=== PATIENT | male | born 1965 | race Caucasian/White ===

== ENCOUNTER 2018-03-16 01:15 | Inpatient (IN) ==
[2018-03-16 01:31] VITALS: BMI 25.8
[2018-03-16] MEDS ORDERED: MORPHINE SULFATE INJ 4 MG IVP ONE (02:08)
[2018-03-16] MEDS ORDERED: ZOFRAN INJ 4 MG VIAL IVP ONE (02:08)
[2018-03-16] MEDS ORDERED: ZOFRAN INJ 4 MG VIAL ONE ×2 (02:10→13:33)
[2018-03-16] MEDS ORDERED: MORPHINE SULFATE INJ 4 MG ONE ×2 (02:11→05:03)
[2018-03-16 02:16] LABS: BASOPHILS % (AUTO) 0.2 % (0.2-1.0); EOSINOPHILS % (AUTO) 0.1 % (0.9-2.9); HEMATOCRIT 46.8 % (42.0-54.0); HEMOGLOBIN 16.1 g/dL (13.5-18.0); LYMPHOCYTES % (AUTO) 4.5 % (21.0-51.0); MEAN CORPUSCULAR HEMOGLOBIN 30.5 pg (27.0-34.0); MEAN CORPUSCULAR HGB CONC 34.3 g/dL (33.0-35.0); MEAN CORPUSCULAR VOLUME 88.8 fL (80.0-100.0); MEAN PLATELET VOLUME 7.9 fL (7.4-11.0); MONOCYTES # (AUTO) 1.2 x10^3/uL (0.3-0.8); MONOCYTES % (AUTO) 5.5 % (0.0-13.0); NEUTROPHILS # (AUTO) 20.1 x10^3/uL (2.2-4.8); NEUTROPHILS % (AUTO) 89.7 % (42.0-75.0); PLATELET COUNT 254 X10^3/uL (150.0-450.0); RED BLOOD COUNT 5.28 X10^6/uL (4.7-6.0); RED CELL DISTRIBUTION WIDTH 13.6 % (11.6-16.5); WHITE BLOOD COUNT 22.4 X10^3/uL (3.6-10.0)
[2018-03-16 02:28] LABS: BILIRUBIN,URINE NEGATIVE (NEGATIVE); BLOOD/HEMOGLOBIN,URINE 1+ (NEGATIVE); GLUCOSE, URINE NEGATIVE (NEGATIVE); KETONES,URINE NEGATIVE (NEGATIVE); LEUKOCYTE ESTERASE ,URINE NEGATIVE (NEGATIVE); NITRITES,URINE NEGATIVE (NEGATIVE); PROTEIN,URINE 1+ (NEGATIVE); UROBILINOGEN,URINE NORMAL (NORMAL)
[2018-03-16 02:29] LABS: APPEARANCE,URINE CLEAR (CLEAR); COLOR,URINE DARK YELLOW (YELLOW)
[2018-03-16 02:32] LABS: ALANINE AMINOTRANSFERASE 34 Units/L (12-78); ALBUMIN 3.7 g/dL (3.4-5.0); ALKALINE PHOSPHATASE 62 Units/L (46-116); AMYLASE 35 Units/L (25-115); ASPARTATE AMINO TRANSFERASE 11 Units/L (15-37); BLOOD UREA NITROGEN 19 mg/dL (7-18); CALCIUM 9.3 mg/dL (8.5-10.1); CARBON DIOXIDE 27.3 mmol/L (21-32); CHLORIDE 98 mmol/L (98-107); COR NA(FOR HYPERGLY) 136 mmol/L (136-145); CREATININE 1.11 mg/dL (0.70-1.30); LIPASE 82 Units/L (73-393); SODIUM 134 mmol/L (136-145); TOTAL PROTEIN 7.1 g/dL (6.4-8.2); eGFR NON BLACK RACES > 60 (>60)
--- NOTE | 2018-03-16 02:32 | DR.ABDMALE ---
HPI Time seen Time Seen by Provider: 03/16/18 01:38 PCP Primary Care Physician: ASH MARQUEZ HPI comment HPI Comment: HISTORY BELOW. Complaint Chief Complaint Doctors Comments: LEFT INGUINAL HERNIA, NOT REDUCIBLE SINCE NOON YESTERDAY. NO FEVER. PAIN WORSE TONIGHT. HAVE HAD HERNIA IN THIS AREA FOR LONG. PATIENT ALSO HAVING LOWER ABDOMINAL PAIN ON LT AND RT ABDOMEN. DENIES DYAURIA. Chief Complaint:: " I BELIEVE I HAVE A RUPTURE HERNIA IT STARTED HURTING ME YESTERDAY ABOUT NOON AND NOWS ITS HURTING WORST AND I CANT SLEEP. PAIN IN MY GROIN STOMACH AND BACK AND MY GROIN SWOLLING. NEVER SEEN NO DR ABOUT HERNIA I JUST HAVE A BIG LUMP IN MY LEFT GROIN." Reviewed Nurses Notes Review: Yes Mode of arrival Mode of Arrival: Ambulatory Timing Onset of Chief Complaint: 03/15/18 Came on: Suddenly Duration Duration: Constant Duration: Hours Location Location: RLQ, LLQ and Suprapubic Severity Severity: Moderate Quality Quality: Sharp Context Onset: Suddenly and At Rest History of: None Modifying factors Worsening Factors: Exertion and Movement Improving Factors: Lying Still Associated signs and symptoms Associated Signs and Symptoms: None PMH PMH Past Medical History: Yes Past Medical History: Hypertension Past Surgical History: No Family History History of Family Medical Conditions: No Social History Type of Tobacco Use: Cigarettes Alcohol Use: None Do you use any recreational Drugs:: No Lives Where: Home infectious screening Have you traveled outside the country in the last 6 months?: No ROS Review of Systems Constitutional: No Symptoms Reported; negative Fever Eyes: No Symptoms Reported ENTM: No Symptoms Reported Respiratoy: No Symptoms Reported Cardiovascular: No Symptoms Reported Gastrointestinal/Abdominal: Abdominal Pain Genitourinary: Pain (LT INGUINAL AREA AND LOWER ABDOMEN.) Neurological: No Symptoms Reported Musculoskeletal: No Symptoms Reported Integumentary: No Symptoms Reported Hematologic/Lymphatic: No Symptoms Reported Endocrine: No Symptoms Reported Psychiatric: No Symptoms Reported All Other Systems: Reviewed and Negative PE Vital Signs Vital Signs: Temp Pulse Pulse Resp BP BP Pulse Ox 03/16/18 05:35 98.6 F 100 H 20 121/77 95 03/16/18 05:18 102.4 F H 99 H 20 117/68 92 L 03/16/18 01:25 99.2 F 88 18 106/60 97 General Limitations: No Limitations General Appearance: Alert and In No Apparent Distress Head Head Exam: Normal Inspection Eyes Eye exam: Normal Appearance ENT ENT Exam: Normal Exam Neck Neck Exam: Normal Inspection Chest Chest Inspection: Normal Inspection Respiratory Respiratory Exam: Normal Lung Sounds Bilat Respiratory Exam: Bilateral: Clear to Auscultation Cardiovascular Cardiovascular Exam: Regular Rate and Normal Rhythm Abdominal Exam Abdominal Exam: Normal Inspection, Normal Bowel Sounds, Soft, Tenderness and Hernia (LT GROIN AREA. NOT REDUCIBLE.) Abdominal Tenderness: RLQ, LLQ, Epigastrium and Severe Rectal Rectal Exam: Deferred Back Back Exam: Normal Inspection Extremeties Extremities Exam: Normal Inspection Exam: Male: Deferred Neurologic Neurological Exam: Alert and Oriented X3 Psychiatric Psychiatric Exam: Normal Affect and Normal Mood Skin Skin Exam: Warm, Dry, Intact and Normal Color MDM Differential Diagnosis Differential Diagnosis: Diverticular disease, Hernia, Pancreatitis, Urinary tract infection and Urolithiasis COURSE Treatment Treatment: SEE ORDERS. Consultation Consultation Comments: DISCUSS PATIENT WITH DR. BRADY, TO ADMIT TO ON DR. DR. POWELL ACCEPT ADMISSION. Education/Counseling Education/Counseling: Patient and Family Educated On: Diagnosis ROR Labs Reviewed Laboratory Results Reviewed?: Yes Result Diagrams: 03/16/18 02:06 03/16/18 02:06 Laboratory: WBC 22.4 X10^3/uL (3.6-10.0) H 03/16/18 02:06 RBC 5.28 X10^6/uL (4.7-6.0) 03/16/18 02:06 Hgb 16.1 g/dL (13.5-18.0) 03/16/18 02:06 Hct 46.8 % (42.0-54.0) 03/16/18 02:06 MCV 88.8 fL (80.0-100.0) 03/16/18 02:06 MCH 30.5 pg (27.0-34.0) 03/16/18 02:06 MCHC 34.3 g/dL (33.0-35.0) 03/16/18 02:06 RDW 13.6 % (11.6-16.5) 03/16/18 02:06 Plt Count 254 X10^3/uL (150.0-450.0) 03/16/18 02:06 Plt Count Comment Adequate (ADEQUATE) 03/16/18 02:06 MPV 7.9 fL (7.4-11.0) 03/16/18 02:06 Neut % (Auto) 89.7 % (42.0-75.0) H 03/16/18 02:06 Lymph % (Auto) 4.5 % (21.0-51.0) L 03/16/18 02:06 [place] % (Auto) 5.5 % (0.0-13.0) 03/16/18 02:06 Eos % (Auto) 0.1 % (0.9-2.9) L 03/16/18 02:06 Baso % (Auto) 0.2 % (0.2-1.0) 03/16/18 02:06 Neut # (Auto) 20.1 x10^3/uL (2.2-4.8) H 03/16/18 02:06 Lymph # (Auto) 1.0 X10^3/uL (1.3-2.9) L 03/16/18 02:06 [place] # (Auto) 1.2 x10^3/uL (0.3-0.8) H 03/16/18 02:06 Eos # (Auto) 0.0 x10^3/uL (0.0-0.2) 03/16/18 02:06 Baso # (Auto) 0.0 X10^3/uL (0.0-0.1) 03/16/18 02:06 Absolute Nucleated RBC 0.0 /100WBC 03/16/18 02:06 Total Counted 100 03/16/18 02:06 Neutrophils % (Manual) 81 % (39-76) H 03/16/18 02:06 Band Neutrophils % 5 % (0-10) 03/16/18 02:06 Lymphocytes % (Manual) 10 % (13-43) L 03/16/18 02:06 Monocytes % (Manual) 4 % (4-9) 03/16/18 02:06 Plt Morphology Comment Normal (NORMAL) 03/16/18 02:06 RBC Morphology Normal (NORMAL) 03/16/18 02:06 Sodium 134 mmol/L (136-145) L 03/16/18 02:06 Corrected Sodium 136 mmol/L (136-145) 03/16/18 02:06 Potassium 4.3 mmol/L (3.5-5.1) 03/16/18 02:06 Chloride 98 mmol/L (98-107) 03/16/18 02:06 Carbon Dioxide 27.3 mmol/L (21-32) 03/16/18 02:06 BUN 19 mg/dL (7-18) H 03/16/18 02:06 Creatinine 1.11 mg/dL (0.70-1.30) 03/16/18 02:06 Est GFR (MDRD) Af Amer > 60 (>60) 03/16/18 02:06 Est GFR (MDRD) Non-Af > 60 (>60) 03/16/18 02:06 Glucose 166 mg/dL (65-99) H 03/16/18 02:06 Lactic Acid 2.1 mmol/L (0.4-2.0) H 03/16/18 05:07 Calcium 9.3 mg/dL (8.5-10.1) 03/16/18 02:06 Corrected Calcium TNP 03/16/18 02:06 Total Bilirubin 0.70 mg/dL (0.2-1.0) 03/16/18 02:06 AST 11 Units/L (15-37) L 03/16/18 02:06 ALT 34 Units/L (12-78) 03/16/18 02:06 Alkaline Phosphatase 62 Units/L (46-116) 03/16/18 02:06 C-Reactive Protein 115.30 mg/L (0-3.0) H 03/16/18 05:07 Total Protein 7.1 g/dL (6.4-8.2) 03/16/18 02:06 Albumin 3.7 g/dL (3.4-5.0) 03/16/18 02:06 Globulin 3.4 g/dL (2.5-4.5) 03/16/18 02:06 Albumin/Globulin Ratio 1.1 Ratio (1.1-2.1) 03/16/18 02:06 Amylase 35 Units/L (25-115) 03/16/18 02:06 Lipase 82 Units/L (73-393) 03/16/18 02:06 Specimen Type Clean catch urine 03/16/18 02:18 Urine Color Dark yellow (YELLOW) 03/16/18 02:18 Urine Appearance Clear (CLEAR) 03/16/18 02:18 Urine pH 6.0 (5.0 - 8.0) 03/16/18 02:18 Ur Specific [place] 1.015 (1.000-1.030) 03/16/18 02:18 Urine Protein 1+ (NEGATIVE) 03/16/18 02:18 Urine Glucose (UA) Negative (NEGATIVE) 03/16/18 02:18 Urine Ketones Negative (NEGATIVE) 03/16/18 02:18 Urine Occult Blood 1+ (NEGATIVE) 03/16/18 02:18 Urine Nitrite Negative (NEGATIVE) 03/16/18 02:18 Urine Bilirubin Negative (NEGATIVE) 03/16/18 02:18 Urine Urobilinogen Normal (NORMAL) 03/16/18 02:18 Ur Leukocyte Esterase Negative (NEGATIVE) 03/16/18 02:18 Urine RBC 0-2 /HPF (NONE SEEN) 03/16/18 02:18 Urine WBC None seen /HPF (NONE SEEN) 03/16/18 02:18 Ur Squamous Epith Cells Negative /HPF (NEGATIVE) 03/16/18 02:18 Urine Bacteria Negative /HPF (NEGATIVE) 03/16/18 02:18 Urine Mucus Rare /HPF (NEGATIVE) 03/16/18 02:18 Ur Culture Indicated? No/not indicated 03/16/18 02:18 XRAY XRAY Interpreted by: Radiologist XRAY Findings: REPORT DISCUSS WITH PATIENT.
[2018-03-16 02:41] LABS: BACTERIA,URINE NEGATIVE /HPF (NEGATIVE); MUCUS,URINE RARE /HPF (NEGATIVE); RBC,URINE 0-2 /HPF (NONE SEEN); SQUAMOUS EPITHELIAL CELL,UR NEGATIVE /HPF (NEGATIVE)
[2018-03-16 02:50] LABS: BAND NEUTROPHILS % 5 % (0-10); PLATELET MORPHOLOGY COMMENT NORMAL (NORMAL)
[2018-03-16] MEDS ORDERED: NS 100 ML IV 100 ML IV ONE (03:45)
--- NOTE | 2018-03-16 04:33 | CT ---
CT abdomen and pelvis with contrast Indication: Lower abdominal pain. Hernia. Technique: Helical images through the abdomen and pelvis after IV contrast. Coronal and sagittal reformats provided. Comparison: None available Findings: Limited images through the lower chest show large left diaphragmatic hernia, containing splenic flexure and portions of the left colon, without obstruction. Granulomatous changes seen around the left hilum Review of bone windows shows no osseous lesion. Abdomen: Gallstones are noted. There is fatty liver. The spleen is beneath the diaphragm and not involved in the hernia and appears normal. The adrenal glands partially herniates on sagittal image 23. The upper pole of the kidney is involved in the hernia on sagittal image 19. Kidneys are otherwise normal. Vasculatures are normal. The stomach and small bowel show no acute abnormality. The colon shows no acute abnormality. The appendix is dilated with a stone in the tip in free air surrounding the tip of the appendix on sagittal image 33 and axial image 80. Free air is noted on axial image 78. Pelvis: The urinary bladder and rectum are normal. The prostate gland is enlarged. Fat containing inguinal hernia is noted bilaterally, larger on the left. Fat containing umbilical hernia noted Impression: 1. Perforated acute appendicitis of the tip with small free fluid and free air. 2. Diaphragmatic hernia on the left and other findings as above. Gallstones. Enlarged prostate gland. Correlate with PSA and physical exam findings. THE AVAILABILITY OF THE REPORT AND FINDINGS WERE COMMUNICATED TO Dr. Blake by Dr. Diaz on 03/16/2018 Time called 4:30 a.m. Reported By:
[2018-03-16] MEDS ORDERED: FLAGYL IV PREMIX 500 MG BAG 500 MG/100 ML BAG IV ONE (04:38)
[2018-03-16] MEDS ORDERED: ZOSYN VIAL 3.375 GRAMS 3.375 G in NS 100 ML IV + SPIKE MINIBAG* 100 ML IV ONE (04:38)
[2018-03-16] MEDS ORDERED: NS 100 ML IV + SPIKE MINIBAG* 100 ML IV ONE (04:51)
[2018-03-16] MEDS ORDERED: ZOSYN VIAL 3.375 GRAMS IV ONE (04:52)
[2018-03-16] MEDS: NS 1000 ML 1,000 ML IV SCH ×3 (05:02→21:05)
[2018-03-16] MEDS ORDERED: MORPHINE SULFATE INJ 4 MG IVP PRN (05:08)
[2018-03-16] MEDS ORDERED: ZOFRAN INJ 4 MG VIAL IVP PRN ×2 (05:09→09:26)
[2018-03-16] MEDS ORDERED: OFIRMEV IV 1000 MG VIAL 1,000 MG/100 ML VIAL IV PRN (05:21)
[2018-03-16 05:43] LABS: LACTIC ACID 2.1 mmol/L (0.4-2.0)
[2018-03-16] MEDS: ZOSYN VIAL 3.375 GRAMS 3.375 G in NS 100 ML IV + SPIKE MINIBAG* 100 ML IV SCH ×3 (05:47→21:36)
--- NOTE | 2018-03-16 06:52 | RAD ---
HISTORY: Preop appendicitis Study: Chest AP portable Comparison: None Findings: The heart is mildly enlarged. No congestive heart failure is noted. No acute alveolar infiltrates are present. Mild interstitial lung changes are present. The left hemidiaphragm is elevated. The bony thorax is unremarkable. IMPRESSION: No acute infiltrates Mild cardiomegaly without congestive heart failure Elevated left hemidiaphragm Reported By:
[2018-03-16] MEDS ORDERED: BACTROBAN TOPICAL OINT ONE (07:12)
[2018-03-16] MEDS ORDERED: BACITRACIN VIAL ONE ×2 (07:12→07:29)
[2018-03-16] MEDS ORDERED: LR 1000 ML IV 1,000 ML IV ONE (07:29)
[2018-03-16] MEDS ORDERED: FENTANYL INJ 250 mcg ONE (07:43)
[2018-03-16] MEDS: FLAGYL IV PREMIX 500 MG BAG 500 MG/100 ML BAG IV SCH ×3 (09:00→20:27)
[2018-03-16] MEDS: DILAUDID INJ IVP PRN ×5 (09:21→21:45)
[2018-03-16] MEDS ORDERED: DILAUDID INJ ONE (09:23)
[2018-03-16] MEDS ORDERED: REGLAN INJ 10 MG VIAL IVP PRN (09:26)
[2018-03-16] MEDS ORDERED: PHENERGAN INJ 25 MG IVP PRN (09:26)
[2018-03-16] MEDS ORDERED: BENADRYL INJ 50 MG VIAL IVP PRN (09:26)
[2018-03-16] MEDS ORDERED: SUPRANE IN ONE (11:07)
[2018-03-16] MEDS: PROTONIX INJ 40 MG VIAL IVP SCH (13:06)
[2018-03-16] MEDS ORDERED: VERSED ONE (13:33)
[2018-03-16] MEDS ORDERED: TORADOL 30 MG VIAL ONE (13:33)
[2018-03-16] MEDS ORDERED: NORCURON INJ 10 MG VIAL ONE (13:33)
[2018-03-16] MEDS ORDERED: QUELICIN (OR ANECTINE) ONE (13:33)
[2018-03-16] MEDS ORDERED: DIPRIVAN VIAL ONE (13:33)
[2018-03-16] MEDS ORDERED: ROBINUL ONE (13:33)
[2018-03-16] MEDS ORDERED: NEOSTIGMINE INJ ONE (13:33)
[2018-03-17] MEDS: NS 1000 ML 1,000 ML IV SCH ×5 (01:48→21:21)
[2018-03-17] MEDS: DILAUDID INJ IVP PRN ×2 (01:48→06:00)
[2018-03-17] MEDS: FLAGYL IV PREMIX 500 MG BAG 500 MG/100 ML BAG IV SCH ×4 (02:30→21:18)
[2018-03-17] MEDS: ZOSYN VIAL 3.375 GRAMS 3.375 G in NS 100 ML IV + SPIKE MINIBAG* 100 ML IV SCH ×3 (05:40→21:18)
[2018-03-17] MEDS: PROTONIX INJ 40 MG VIAL IVP SCH (09:42)
[2018-03-17] MEDS ORDERED: TORADOL 30 MG VIAL ONE (09:51)
[2018-03-17] MEDS: TORADOL 30 MG VIAL IVP PRN ×3 (09:52→21:40)
[2018-03-17 10:12] LABS: BASOPHILS # (AUTO) 0.1 X10^3/uL (0.0-0.1); BASOPHILS % (AUTO) 0.4 % (0.2-1.0); EOSINOPHILS % (AUTO) 0.1 % (0.9-2.9); HEMATOCRIT 43.4 % (42.0-54.0); HEMOGLOBIN 14.8 g/dL (13.5-18.0); LYMPHOCYTES # (AUTO) 0.9 X10^3/uL (1.3-2.9); LYMPHOCYTES % (AUTO) 4.2 % (21.0-51.0); MEAN CORPUSCULAR HEMOGLOBIN 30.4 pg (27.0-34.0); MEAN CORPUSCULAR VOLUME 89.4 fL (80.0-100.0); MEAN PLATELET VOLUME 7.7 fL (7.4-11.0); MONOCYTES # (AUTO) 1.1 x10^3/uL (0.3-0.8); MONOCYTES % (AUTO) 4.9 % (0.0-13.0); NEUTROPHILS # (AUTO) 19.7 x10^3/uL (2.2-4.8); NEUTROPHILS % (AUTO) 90.4 % (42.0-75.0); PLATELET COUNT 225 X10^3/uL (150.0-450.0); RED BLOOD COUNT 4.85 X10^6/uL (4.7-6.0); RED CELL DISTRIBUTION WIDTH 13.7 % (11.6-16.5); WHITE BLOOD COUNT 21.8 X10^3/uL (3.6-10.0)
[2018-03-17 10:37] LABS: BAND NEUTROPHILS % 8 % (0-10)
[2018-03-17 10:38] LABS: PLATELET MORPHOLOGY COMMENT NORMAL (NORMAL)
[2018-03-17 10:43] LABS: ALANINE AMINOTRANSFERASE 21 Units/L (12-78); ALBUMIN 2.7 g/dL (3.4-5.0); ALKALINE PHOSPHATASE 54 Units/L (46-116); ASPARTATE AMINO TRANSFERASE 11 Units/L (15-37); BLOOD UREA NITROGEN 13 mg/dL (7-18); CALCIUM 9.3 mg/dL (8.5-10.1); CARBON DIOXIDE 26.3 mmol/L (21-32); CHLORIDE 101 mmol/L (98-107); COR CA(FOR HYPOALB) 10.3 mg/dL (8.5-10.1); COR NA(FOR HYPERGLY) 135 mmol/L (136-145); CREATININE 0.92 mg/dL (0.70-1.30); SODIUM 135 mmol/L (136-145); TOTAL PROTEIN 6.7 g/dL (6.4-8.2); eGFR NON BLACK RACES > 60 (>60)
[2018-03-17] MEDS: HYDROCHLOROTHIAZIDE 12.5 MG CAP PO SCH (11:36)
[2018-03-17] MEDS: COZAAR PO SCH (11:36)
--- NOTE | 2018-03-17 12:36 | DR.PROGNOT ---
Hospital Progress Notes - Progress Note for Day of: Progress Note Date: 03/17/18 - Chief Complaint Chief Complaint: s/p lap appendectomy day 1 . doing fairly well . less abdominal pain . afebrile , no BM yet . minimal drainage in LEFTY. - Past Medical Family Social History Past Med/Fam/Surg Hx: No changes since H&P Allergies: Allergies kiwi Allergy (Verified 03/16/18 05:10) - Review Of Systems ROS: No change since H&P - Vital Signs Vital Signs: Temperature 98.8 F Pulse Rate [Right Brachial] 72 Pulse Rate [Apical] 105 Pulse Rate 97 Respiratory Rate 20 Blood Pressure [Right Arm] 127/59 Blood Pressure 109/58 O2 Sat by Pulse Oximetry 94 - Physical Exam Oriented: Normal Eyes: Normal Ear: Normal Nose: Normal Respiratory: Normal Cardiovascular: Normal : Normal GI:Auscultation: Decreased GI: Tenderness: Diffuse, Moderate Skin: Normal Musculoskeletal: Normal Mood Description: Calm Speech Pattern: Clear, Appropriate - Laboratory and Diagnostics Result Diagrams: 03/17/18 10:00 03/17/18 10:00 Labs: 03/16/18 08:17 Peritoneal Fluid Gram Stain - Final 03/16/18 08:17 Peritoneal Fluid - Preliminary Laboratory WBC 21.8 X10^3/uL (3.6-10.0) H 03/17/18 10:00 RBC 4.85 X10^6/uL (4.7-6.0) 03/17/18 10:00 Hgb 14.8 g/dL (13.5-18.0) 03/17/18 10:00 Hct 43.4 % (42.0-54.0) 03/17/18 10:00 MCV 89.4 fL (80.0-100.0) 03/17/18 10:00 MCH 30.4 pg (27.0-34.0) 03/17/18 10:00 MCHC 34.0 g/dL (33.0-35.0) 03/17/18 10:00 RDW 13.7 % (11.6-16.5) 03/17/18 10:00 Plt Count 225 X10^3/uL (150.0-450.0) 03/17/18 10:00 Plt Count Comment Adequate (ADEQUATE) 03/17/18 10:00 MPV 7.7 fL (7.4-11.0) 03/17/18 10:00 Neut % (Auto) 90.4 % (42.0-75.0) H 03/17/18 10:00 Lymph % (Auto) 4.2 % (21.0-51.0) L 03/17/18 10:00 [place] % (Auto) 4.9 % (0.0-13.0) 03/17/18 10:00 Eos % (Auto) 0.1 % (0.9-2.9) L 03/17/18 10:00 Baso % (Auto) 0.4 % (0.2-1.0) 03/17/18 10:00 Neut # (Auto) 19.7 x10^3/uL (2.2-4.8) H 03/17/18 10:00 Lymph # (Auto) 0.9 X10^3/uL (1.3-2.9) L 03/17/18 10:00 [place] # (Auto) 1.1 x10^3/uL (0.3-0.8) H 03/17/18 10:00 Eos # (Auto) 0.0 x10^3/uL (0.0-0.2) 03/17/18 10:00 Baso # (Auto) 0.1 X10^3/uL (0.0-0.1) 03/17/18 10:00 Absolute Nucleated RBC 0.0 /100WBC 03/17/18 10:00 Total Counted 100 03/17/18 10:00 Neutrophils % (Manual) 84 % (39-76) H 03/17/18 10:00 Band Neutrophils % 8 % (0-10) 03/17/18 10:00 Lymphocytes % (Manual) 4 % (13-43) L 03/17/18 10:00 Monocytes % (Manual) 4 % (4-9) 03/17/18 10:00 Plt Morphology Comment Normal (NORMAL) 03/17/18 10:00 RBC Morphology Normal (NORMAL) 03/17/18 10:00 Sodium 135 mmol/L (136-145) L 03/17/18 10:00 Corrected Sodium 135 mmol/L (136-145) L 03/17/18 10:00 Potassium 4.9 mmol/L (3.5-5.1) 03/17/18 10:00 Chloride 101 mmol/L (98-107) 03/17/18 10:00 Carbon Dioxide 26.3 mmol/L (21-32) 03/17/18 10:00 BUN 13 mg/dL (7-18) 03/17/18 10:00 Creatinine 0.92 mg/dL (0.70-1.30) 03/17/18 10:00 Est GFR (MDRD) Af Amer > 60 (>60) 03/17/18 10:00 Est GFR (MDRD) Non-Af > 60 (>60) 03/17/18 10:00 Glucose 116 mg/dL (65-99) H 03/17/18 10:00 Lactic Acid 2.1 mmol/L (0.4-2.0) H 03/16/18 05:07 Calcium 9.3 mg/dL (8.5-10.1) 03/17/18 10:00 Corrected Calcium 10.3 mg/dL (8.5-10.1) H 03/17/18 10:00 Total Bilirubin 0.90 mg/dL (0.2-1.0) 03/17/18 10:00 AST 11 Units/L (15-37) L 03/17/18 10:00 ALT 21 Units/L (12-78) 03/17/18 10:00 Alkaline Phosphatase 54 Units/L (46-116) 03/17/18 10:00 C-Reactive Protein 115.30 mg/L (0-3.0) H 03/16/18 05:07 Total Protein 6.7 g/dL (6.4-8.2) 03/17/18 10:00 Albumin 2.7 g/dL (3.4-5.0) L 03/17/18 10:00 Globulin 4.0 g/dL (2.5-4.5) 03/17/18 10:00 Albumin/Globulin Ratio 0.7 Ratio (1.1-2.1) L 03/17/18 10:00 Amylase 35 Units/L (25-115) 03/16/18 02:06 Lipase 82 Units/L (73-393) 03/16/18 02:06 Specimen Type Clean catch urine 03/16/18 02:18 Urine Color Dark yellow (YELLOW) 03/16/18 02:18 Urine Appearance Clear (CLEAR) 03/16/18 02:18 Urine pH 6.0 (5.0 - 8.0) 03/16/18 02:18 Ur Specific [place] 1.015 (1.000-1.030) 03/16/18 02:18 Urine Protein 1+ (NEGATIVE) 03/16/18 02:18 Urine Glucose (UA) Negative (NEGATIVE) 03/16/18 02:18 Urine Ketones Negative (NEGATIVE) 03/16/18 02:18 Urine Occult Blood 1+ (NEGATIVE) 03/16/18 02:18 Urine Nitrite Negative (NEGATIVE) 03/16/18 02:18 Urine Bilirubin Negative (NEGATIVE) 03/16/18 02:18 Urine Urobilinogen Normal (NORMAL) 03/16/18 02:18 Ur Leukocyte Esterase Negative (NEGATIVE) 03/16/18 02:18 Urine RBC 0-2 /HPF (NONE SEEN) 03/16/18 02:18 Urine WBC None seen /HPF (NONE SEEN) 03/16/18 02:18 Ur Squamous Epith Cells Negative /HPF (NEGATIVE) 03/16/18 02:18 Urine Bacteria Negative /HPF (NEGATIVE) 03/16/18 02:18 Urine Mucus Rare /HPF (NEGATIVE) 03/16/18 02:18 Ur Culture Indicated? No/not indicated 03/16/18 02:18 Tissue Pathology To follow 03/16/18 08:58 - Assessment and Plan 1: post operative Lap Appendectomy for perforated appendecitis and peritonitis. abdominal adhesions . diaphragmatic hernia . will advance diet to full liquid , OOB . keep LEFTY in place
[2018-03-17] MEDS: NORCO 10/325 TAB PO PRN ×3 (14:01→22:59)
[2018-03-17] MEDS ORDERED: COLACE CAP 100 MG PO SCH (21:00)
[2018-03-18] MEDS: NORCO 10/325 TAB PO PRN ×2 (03:01→07:31)
[2018-03-18] MEDS: FLAGYL IV PREMIX 500 MG BAG 500 MG/100 ML BAG IV SCH ×2 (03:02→09:21)
[2018-03-18] MEDS: ZOSYN VIAL 3.375 GRAMS 3.375 G in NS 100 ML IV + SPIKE MINIBAG* 100 ML IV SCH (05:37)
[2018-03-18] MEDS: TORADOL 30 MG VIAL IVP PRN ×2 (05:38→12:31)
[2018-03-18 05:55] LABS: BASOPHILS % (AUTO) 0.3 % (0.2-1.0); EOSINOPHILS # (AUTO) 0.1 x10^3/uL (0.0-0.2); EOSINOPHILS % (AUTO) 0.6 % (0.9-2.9); HEMATOCRIT 40.3 % (42.0-54.0); HEMOGLOBIN 13.7 g/dL (13.5-18.0); LYMPHOCYTES # (AUTO) 0.9 X10^3/uL (1.3-2.9); MEAN CORPUSCULAR HEMOGLOBIN 30.5 pg (27.0-34.0); MEAN CORPUSCULAR VOLUME 89.9 fL (80.0-100.0); MEAN PLATELET VOLUME 8.1 fL (7.4-11.0); MONOCYTES # (AUTO) 0.8 x10^3/uL (0.3-0.8); MONOCYTES % (AUTO) 5.6 % (0.0-13.0); NEUTROPHILS % (AUTO) 87.5 % (42.0-75.0); PLATELET COUNT 198 X10^3/uL (150.0-450.0); RED BLOOD COUNT 4.48 X10^6/uL (4.7-6.0); RED CELL DISTRIBUTION WIDTH 14.1 % (11.6-16.5); WHITE BLOOD COUNT 14.8 X10^3/uL (3.6-10.0)
[2018-03-18 06:04] LABS: ALANINE AMINOTRANSFERASE 18 Units/L (12-78); ALBUMIN 2.4 g/dL (3.4-5.0); ALKALINE PHOSPHATASE 55 Units/L (46-116); ASPARTATE AMINO TRANSFERASE 11 Units/L (15-37); BLOOD UREA NITROGEN 13 mg/dL (7-18); CALCIUM 8.9 mg/dL (8.5-10.1); CARBON DIOXIDE 22.3 mmol/L (21-32); CHLORIDE 105 mmol/L (98-107); COR CA(FOR HYPOALB) 10.2 mg/dL (8.5-10.1); COR NA(FOR HYPERGLY) 138 mmol/L (136-145); CREATININE 0.82 mg/dL (0.70-1.30); SODIUM 138 mmol/L (136-145); TOTAL PROTEIN 6.2 g/dL (6.4-8.2); eGFR NON BLACK RACES > 60 (>60)
[2018-03-18] MEDS ORDERED: LOVENOX INJ 40 MG SYR SC SCH (09:00)
[2018-03-18] MEDS: NS 1000 ML 1,000 ML IV SCH ×2 (09:21→09:28)
[2018-03-18] MEDS: COZAAR PO SCH (09:22)
[2018-03-18] MEDS: HYDROCHLOROTHIAZIDE 12.5 MG CAP PO SCH (09:22)
[2018-03-18] MEDS: PROTONIX INJ 40 MG VIAL IVP SCH (09:22)
[2018-03-18 12:33] VITALS: BP 132/73
== END 2018-03-18 12:40 | disposition home or self-care (01) | DRG 339 ==
LOC: ER 01:23 → MED/SURG 05:20
PROVIDERS: ADMIT Obstetrics & Gynecology Obstetrics; ATTEND Obstetrics & Gynecology Obstetrics
PROC: APPYLAP (ICD-10-PCS; 2018-03-16 07:45)
DX: K66.0 Peritoneal adhesions (postprocedural) (postinfection); K35.32 Acute appendicitis with perforation, localized peritonitis, and gangrene, without abscess; R79.82 Elevated C-reactive protein (CRP); K40.00 Bilateral inguinal hernia, with obstruction, without gangrene, not specified as recurrent; R50.9 Fever, unspecified; R11.2 Nausea with vomiting, unspecified; R10.84 Generalized abdominal pain
CPT/HCPCS: 36415; 71010; 71045; 74177; 80053; 81001; 82150; 83605; 83690; 85025; 86140; 87040; 87070; 87076; 87077; 87186; 87205; 93005; 94760; 96365; 96374; 96375; 99284; A4222; C9113; J3490; S0030; J0131; J0330; J1170; J1650; J1885; J2250; J2270; J2405; J2543; J2704; J2710; J3010; J7030; J7050; J7120

== ENCOUNTER 2018-04-21 08:59 | Inpatient (IN) ==
[2018-04-21] MEDS ORDERED: ANCEF 1 GRAM IV PREMIX* 1 G/50 ML BAG IV ONE (09:19)
[2018-04-21] MEDS ORDERED: LR 1000 ML IV 1,000 ML IV ONE ×2 (09:19→12:34)
[2018-04-21] MEDS ORDERED: FLAGYL IV PREMIX 500 MG BAG 500 MG/100 ML BAG IV ONE (09:20)
[2018-04-21] MEDS ORDERED: NS IRRIGATION 3000 ML ONE (09:27)
[2018-04-21 09:49] VITALS: BMI 22.9
[2018-04-21] MEDS ORDERED: ULTANE GAS IN ONE (10:11)
[2018-04-21] MEDS ORDERED: ROBINUL ONE (10:11)
[2018-04-21] MEDS ORDERED: DIPRIVAN VIAL ONE (10:11)
[2018-04-21] MEDS ORDERED: QUELICIN (OR ANECTINE) ONE (10:11)
[2018-04-21] MEDS ORDERED: NORCURON INJ 10 MG VIAL ONE (10:11)
[2018-04-21] MEDS ORDERED: VERSED ONE (10:11)
[2018-04-21] MEDS ORDERED: ZOFRAN INJ 4 MG VIAL ONE (10:11)
[2018-04-21] MEDS ORDERED: NEOSTIGMINE INJ ONE (10:11)
[2018-04-21] MEDS ORDERED: EPHEDRINE SULFATE INJ ONE (10:11)
[2018-04-21 10:35] LABS: HEMATOCRIT 43.5 % (42.0-54.0); HEMOGLOBIN 15.1 g/dL (13.5-18.0)
[2018-04-21] MEDS ORDERED: BACTROBAN TOPICAL OINT ONE (10:51)
[2018-04-21] MEDS ORDERED: DILAUDID INJ ONE ×2 (11:25→14:03)
[2018-04-21] MEDS ORDERED: FENTANYL INJ 250 mcg ONE (11:25)
[2018-04-21] MEDS ORDERED: BACITRACIN VIAL ONE ×2 (12:18→13:33)
[2018-04-21] MEDS ORDERED: DILAUDID INJ IVP PRN (14:34)
[2018-04-21] MEDS ORDERED: PHENERGAN INJ 25 MG IVP PRN (14:34)
[2018-04-21] MEDS ORDERED: ZOFRAN INJ 4 MG VIAL IVP PRN (14:34)
[2018-04-21] MEDS ORDERED: REGLAN INJ 10 MG VIAL IVP PRN (14:34)
[2018-04-21] MEDS ORDERED: BENADRYL INJ 50 MG VIAL IVP PRN (14:34)
[2018-04-21] MEDS ORDERED: LEVAQUIN PREMIX IV 500 MG 500 MG/100 ML BAG IV ONE (15:04)
[2018-04-21] MEDS: DILAUDID INJ ONE ×2 (15:06→15:11)
[2018-04-21] MEDS: D5 1/4 NS 1000 ML 1,000 ML IV SCH (16:04)
[2018-04-21] MEDS: DILAUDID INJ IVP PRN ×3 (17:00→23:25)
--- NOTE | 2018-04-21 17:51 | OR.GENERIC ---
Post-Op Note Generic - Post-Op Note Operative Report: lap rica . 2- exploratory lap , lysis of extensive adhesions , Rt colectomy and drainage of pelvic abscess ,. finding : calculus cholecystitis , Carcinoid tumr of appendix and cecum. pelvic abscess , abdominal adhesions . EBL 200 cc on IV ATB , IV Protonix . and PO care..
[2018-04-21] MEDS: ZOFRAN INJ 4 MG VIAL IVP PRN (20:44)
[2018-04-21] MEDS: FLAGYL IV PREMIX 500 MG BAG 500 MG/100 ML BAG IV SCH (21:05)
[2018-04-22] MEDS: D5 1/4 NS 1000 ML 1,000 ML IV SCH ×3 (00:56→17:43)
[2018-04-22] MEDS: DILAUDID INJ IVP PRN ×7 (02:35→21:15)
[2018-04-22] MEDS: FLAGYL IV PREMIX 500 MG BAG 500 MG/100 ML BAG IV SCH ×4 (02:38→21:15)
[2018-04-22 05:26] LABS: BASOPHILS # (AUTO) 0.1 X10^3/uL (0.0-0.1); BASOPHILS % (AUTO) 0.4 % (0.2-1.0); EOSINOPHILS # (AUTO) 0.1 x10^3/uL (0.0-0.2); EOSINOPHILS % (AUTO) 0.4 % (0.9-2.9); HEMOGLOBIN 15.1 g/dL (13.5-18.0); LYMPHOCYTES # (AUTO) 2.5 X10^3/uL (1.3-2.9); LYMPHOCYTES % (AUTO) 13.5 % (21.0-51.0); MEAN CORPUSCULAR HEMOGLOBIN 29.7 pg (27.0-34.0); MEAN CORPUSCULAR HGB CONC 33.6 g/dL (33.0-35.0); MEAN CORPUSCULAR VOLUME 88.3 fL (80.0-100.0); MEAN PLATELET VOLUME 8.3 fL (7.4-11.0); MONOCYTES # (AUTO) 1.3 x10^3/uL (0.3-0.8); MONOCYTES % (AUTO) 6.9 % (0.0-13.0); NEUTROPHILS # (AUTO) 14.4 x10^3/uL (2.2-4.8); NEUTROPHILS % (AUTO) 78.8 % (42.0-75.0); PLATELET COUNT 360 X10^3/uL (150.0-450.0); RED CELL DISTRIBUTION WIDTH 13.3 % (11.6-16.5); WHITE BLOOD COUNT 18.3 X10^3/uL (3.6-10.0)
[2018-04-22 05:36] LABS: ALANINE AMINOTRANSFERASE 28 Units/L (12-78); ALBUMIN 2.7 g/dL (3.4-5.0); ALKALINE PHOSPHATASE 66 Units/L (46-116); ASPARTATE AMINO TRANSFERASE 20 Units/L (15-37); BLOOD UREA NITROGEN 11 mg/dL (7-18); CALCIUM 9.1 mg/dL (8.5-10.1); CARBON DIOXIDE 32.1 mmol/L (21-32); CHLORIDE 100 mmol/L (98-107); COR CA(FOR HYPOALB) 10.1 mg/dL (8.5-10.1); COR NA(FOR HYPERGLY) 139 mmol/L (136-145); CREATININE 1.09 mg/dL (0.70-1.30); SODIUM 137 mmol/L (136-145); TOTAL PROTEIN 6.3 g/dL (6.4-8.2); eGFR NON BLACK RACES > 60 (>60)
[2018-04-22] MEDS: ZOFRAN INJ 4 MG VIAL IVP PRN ×3 (05:40→20:12)
--- NOTE | 2018-04-22 05:56 | RAD ---
Examination: KUB History: None available Findings: Normal intestinal gas pattern. Surgical clips right abdomen. NG tube tip in position consistent with distal stomach. No definite mass formation or ascites. Impression: Postsurgical findings. No acute intestinal abnormality demonstrated. Reported By:
[2018-04-22] MEDS: PROTONIX INJ 40 MG VIAL IVP SCH (08:32)
[2018-04-22] MEDS: LOVENOX INJ 40 MG SYR SC SCH (08:32)
--- NOTE | 2018-04-22 11:58 | DR.PROGNOT ---
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 large Lt diaphragmatic hernia.. s/p cholecystectomy , Lt colectomy , lysis of extensive adhesions ,drainage of. pelvic abscess. - Past Medical Family Social History Past Med/Fam/Surg Hx: No changes since H&P Allergies: Allergies kiwi Allergy (Verified 03/16/18 05:10) - Review Of Systems ROS: No change since H&P - Vital Signs Vital Signs: Temperature 98.4 F Pulse Rate 86 Respiratory Rate 14 Blood Pressure [Right Arm] 132/73 Blood Pressure 125/81 O2 Sat by Pulse Oximetry 99 - Physical Exam Oriented: Normal Eyes: Normal Ear: Normal Nose: Normal Respiratory: Normal Cardiovascular: Normal : Normal GI:Auscultation: Decreased GI:Palpation: Normal GI: Tenderness: Diffuse Skin: Normal Speech Pattern: Clear, Appropriate - Laboratory and Diagnostics Result Diagrams: 04/22/18 05:09 04/22/18 05:09 Labs: 04/21/18 13:20 Abdomen Gram Stain - Final 04/21/18 13:20 Abdomen Wound Culture - Preliminary Laboratory WBC 18.3 X10^3/uL (3.6-10.0) H D 04/22/18 05:09 RBC 5.10 X10^6/uL (4.7-6.0) 04/22/18 05:09 Hgb 15.1 g/dL (13.5-18.0) 04/22/18 05:09 Hct 45.0 % (42.0-54.0) 04/22/18 05:09 MCV 88.3 fL (80.0-100.0) 04/22/18 05:09 MCH 29.7 pg (27.0-34.0) 04/22/18 05:09 MCHC 33.6 g/dL (33.0-35.0) 04/22/18 05:09 RDW 13.3 % (11.6-16.5) 04/22/18 05:09 Plt Count 360 X10^3/uL (150.0-450.0) 04/22/18 05:09 MPV 8.3 fL (7.4-11.0) 04/22/18 05:09 Neut % (Auto) 78.8 % (42.0-75.0) H 04/22/18 05:09 Lymph % (Auto) 13.5 % (21.0-51.0) L 04/22/18 05:09 [place] % (Auto) 6.9 % (0.0-13.0) 04/22/18 05:09 Eos % (Auto) 0.4 % (0.9-2.9) L 04/22/18 05:09 Baso % (Auto) 0.4 % (0.2-1.0) 04/22/18 05:09 Neut # (Auto) 14.4 x10^3/uL (2.2-4.8) H 04/22/18 05:09 Lymph # (Auto) 2.5 X10^3/uL (1.3-2.9) 04/22/18 05:09 [place] # (Auto) 1.3 x10^3/uL (0.3-0.8) H 04/22/18 05:09 Eos # (Auto) 0.1 x10^3/uL (0.0-0.2) 04/22/18 05:09 Baso # (Auto) 0.1 X10^3/uL (0.0-0.1) 04/22/18 05:09 Absolute Nucleated RBC 0.1 /100WBC 04/22/18 05:09 Sodium 137 mmol/L (136-145) 04/22/18 05:09 Corrected Sodium 139 mmol/L (136-145) 04/22/18 05:09 Potassium 4.6 mmol/L (3.5-5.1) 04/22/18 05:09 Chloride 100 mmol/L (98-107) 04/22/18 05:09 Carbon Dioxide 32.1 mmol/L (21-32) H 04/22/18 05:09 BUN 11 mg/dL (7-18) 04/22/18 05:09 Creatinine 1.09 mg/dL (0.70-1.30) 04/22/18 05:09 Est GFR (MDRD) Af Amer > 60 (>60) 04/22/18 05:09 Est GFR (MDRD) Non-Af > 60 (>60) 04/22/18 05:09 Glucose 175 mg/dL (65-99) H 04/22/18 05:09 Calcium 9.1 mg/dL (8.5-10.1) 04/22/18 05:09 Corrected Calcium 10.1 mg/dL (8.5-10.1) 04/22/18 05:09 Total Bilirubin 0.40 mg/dL (0.2-1.0) 04/22/18 05:09 AST 20 Units/L (15-37) 04/22/18 05:09 ALT 28 Units/L (12-78) 04/22/18 05:09 Alkaline Phosphatase 66 Units/L (46-116) 04/22/18 05:09 Total Protein 6.3 g/dL (6.4-8.2) L 04/22/18 05:09 Albumin 2.7 g/dL (3.4-5.0) L 04/22/18 05:09 Globulin 3.6 g/dL (2.5-4.5) 04/22/18 05:09 Albumin/Globulin Ratio 0.8 Ratio (1.1-2.1) L 04/22/18 05:09 Tissue Pathology To follow 04/21/18 12:12 Blood Type O POSITIVE 04/21/18 10:03 Antibody Screen Negative 04/21/18 10:03 Crossmatch See Detail 04/21/18 10:03 - Assessment and Plan 1: Post op lap rica . laparotomt. lysis of extensive adhesions. Rt colectomy . drainage pelvic abscess. same PO care , DVT prophylaxis ,IV ATB, OOB with binder .
[2018-04-23] MEDS: DILAUDID INJ IVP PRN ×6 (00:15→20:03)
[2018-04-23] MEDS: D5 1/4 NS 1000 ML 1,000 ML IV SCH ×4 (01:19→22:17)
[2018-04-23] MEDS: FLAGYL IV PREMIX 500 MG BAG 500 MG/100 ML BAG IV SCH ×4 (03:30→20:04)
[2018-04-23 06:04] LABS: BASOPHILS # (AUTO) 0.1 X10^3/uL (0.0-0.1); BASOPHILS % (AUTO) 0.5 % (0.2-1.0); EOSINOPHILS # (AUTO) 0.2 x10^3/uL (0.0-0.2); EOSINOPHILS % (AUTO) 1.2 % (0.9-2.9); HEMATOCRIT 39.6 % (42.0-54.0); HEMOGLOBIN 13.6 g/dL (13.5-18.0); LYMPHOCYTES # (AUTO) 1.9 X10^3/uL (1.3-2.9); LYMPHOCYTES % (AUTO) 12.4 % (21.0-51.0); MEAN CORPUSCULAR HGB CONC 34.4 g/dL (33.0-35.0); MEAN CORPUSCULAR VOLUME 87.2 fL (80.0-100.0); MEAN PLATELET VOLUME 7.3 fL (7.4-11.0); MONOCYTES # (AUTO) 1.6 x10^3/uL (0.3-0.8); MONOCYTES % (AUTO) 10.1 % (0.0-13.0); NEUTROPHILS # (AUTO) 11.9 x10^3/uL (2.2-4.8); NEUTROPHILS % (AUTO) 75.8 % (42.0-75.0); PLATELET COUNT 358 X10^3/uL (150.0-450.0); RED BLOOD COUNT 4.54 X10^6/uL (4.7-6.0); RED CELL DISTRIBUTION WIDTH 13.5 % (11.6-16.5); WHITE BLOOD COUNT 15.7 X10^3/uL (3.6-10.0)
[2018-04-23 06:19] LABS: CHLORIDE 98 mmol/L (98-107); SODIUM 135 mmol/L (136-145)
[2018-04-23 06:35] LABS: ALANINE AMINOTRANSFERASE 27 Units/L (12-78); ALBUMIN 2.5 g/dL (3.4-5.0); ALKALINE PHOSPHATASE 59 Units/L (46-116); ASPARTATE AMINO TRANSFERASE 18 Units/L (15-37); BLOOD UREA NITROGEN 6 mg/dL (7-18); CALCIUM 9.1 mg/dL (8.5-10.1); CARBON DIOXIDE 32.8 mmol/L (21-32); COR CA(FOR HYPOALB) 10.3 mg/dL (8.5-10.1); COR NA(FOR HYPERGLY) 136 mmol/L (136-145); CREATININE 0.95 mg/dL (0.70-1.30); TOTAL PROTEIN 6.1 g/dL (6.4-8.2); eGFR NON BLACK RACES > 60 (>60)
[2018-04-23] MEDS: LOVENOX INJ 40 MG SYR SC SCH (08:30)
[2018-04-23] MEDS: PROTONIX INJ 40 MG VIAL IVP SCH (08:30)
--- NOTE | 2018-04-23 09:09 | DR.PROGNOT ---
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 large Lt diaphragmatic hernia.. s/p cholecystectomy , Lt colectomy , lysis of extensive adhesions ,drainage of. pelvic abscess. feeling better this am , no BM yet - Past Medical Family Social History Past Med/Fam/Surg Hx: No changes since H&P Allergies: Allergies kiwi Allergy (Verified 03/16/18 05:10) - Review Of Systems ROS: No change since H&P - Vital Signs Vital Signs: Temperature 98.9 F Pulse Rate 75 Respiratory Rate 15 Blood Pressure [Right Arm] 132/73 Blood Pressure 124/63 O2 Sat by Pulse Oximetry 96 - Physical Exam Oriented: Normal Eyes: Normal Ear: Normal Nose: Normal Respiratory: Normal Cardiovascular: Normal : Normal GI:Auscultation: Decreased GI:Palpation: Normal GI: Tenderness: Diffuse Skin: Normal Speech Pattern: Clear, Appropriate - Laboratory and Diagnostics Result Diagrams: 04/23/18 05:45 04/23/18 05:45 Labs: 04/21/18 13:20 Abdomen Gram Stain - Final 04/21/18 13:20 Abdomen Wound Culture - Final Escherichia Coli Laboratory WBC 15.7 X10^3/uL (3.6-10.0) H 04/23/18 05:45 RBC 4.54 X10^6/uL (4.7-6.0) L 04/23/18 05:45 Hgb 13.6 g/dL (13.5-18.0) 04/23/18 05:45 Hct 39.6 % (42.0-54.0) L 04/23/18 05:45 MCV 87.2 fL (80.0-100.0) 04/23/18 05:45 MCH 30.0 pg (27.0-34.0) 04/23/18 05:45 MCHC 34.4 g/dL (33.0-35.0) 04/23/18 05:45 RDW 13.5 % (11.6-16.5) 04/23/18 05:45 Plt Count 358 X10^3/uL (150.0-450.0) 04/23/18 05:45 MPV 7.3 fL (7.4-11.0) L 04/23/18 05:45 Neut % (Auto) 75.8 % (42.0-75.0) H 04/23/18 05:45 Lymph % (Auto) 12.4 % (21.0-51.0) L 04/23/18 05:45 [place] % (Auto) 10.1 % (0.0-13.0) 04/23/18 05:45 Eos % (Auto) 1.2 % (0.9-2.9) 04/23/18 05:45 Baso % (Auto) 0.5 % (0.2-1.0) 04/23/18 05:45 Neut # (Auto) 11.9 x10^3/uL (2.2-4.8) H 04/23/18 05:45 Lymph # (Auto) 1.9 X10^3/uL (1.3-2.9) 04/23/18 05:45 [place] # (Auto) 1.6 x10^3/uL (0.3-0.8) H 04/23/18 05:45 Eos # (Auto) 0.2 x10^3/uL (0.0-0.2) 04/23/18 05:45 Baso # (Auto) 0.1 X10^3/uL (0.0-0.1) 04/23/18 05:45 Absolute Nucleated RBC 0.0 /100WBC 04/23/18 05:45 Sodium 135 mmol/L (136-145) L 04/23/18 05:45 Corrected Sodium 136 mmol/L (136-145) 04/23/18 05:45 Potassium 4.2 mmol/L (3.5-5.1) 04/23/18 05:45 Chloride 98 mmol/L (98-107) 04/23/18 05:45 Carbon Dioxide 32.8 mmol/L (21-32) H 04/23/18 05:45 BUN 6 mg/dL (7-18) L 04/23/18 05:45 Creatinine 0.95 mg/dL (0.70-1.30) 04/23/18 05:45 Est GFR (MDRD) Af Amer > 60 (>60) 04/23/18 05:45 Est GFR (MDRD) Non-Af > 60 (>60) 04/23/18 05:45 Glucose 153 mg/dL (65-99) H 04/23/18 05:45 Calcium 9.1 mg/dL (8.5-10.1) 04/23/18 05:45 Corrected Calcium 10.3 mg/dL (8.5-10.1) H 04/23/18 05:45 Total Bilirubin 0.50 mg/dL (0.2-1.0) 04/23/18 05:45 AST 18 Units/L (15-37) 04/23/18 05:45 ALT 27 Units/L (12-78) 04/23/18 05:45 Alkaline Phosphatase 59 Units/L (46-116) 04/23/18 05:45 Total Protein 6.1 g/dL (6.4-8.2) L 04/23/18 05:45 Albumin 2.5 g/dL (3.4-5.0) L 04/23/18 05:45 Globulin 3.6 g/dL (2.5-4.5) 04/23/18 05:45 Albumin/Globulin Ratio 0.7 Ratio (1.1-2.1) L 04/23/18 05:45 Tissue Pathology To follow 04/21/18 12:12 Blood Type O POSITIVE 04/21/18 10:03 Antibody Screen Negative 04/21/18 10:03 Crossmatch See Detail 04/21/18 10:03 - Assessment and Plan 1: Post op lap rica . laparotomt. lysis of extensive adhesions. Rt colectomy . drainage pelvic abscess. same PO care , DVT prophylaxis ,IV ATB, OOB with binder . D/C NGT and keep NPO
[2018-04-23] MEDS: TORADOL 30 MG VIAL IVP PRN ×3 (10:00→23:13)
[2018-04-23] MEDS: ZOFRAN INJ 4 MG VIAL IVP PRN (20:10)
[2018-04-24] MEDS: DILAUDID INJ IVP PRN ×6 (01:50→20:57)
[2018-04-24] MEDS: FLAGYL IV PREMIX 500 MG BAG 500 MG/100 ML BAG IV SCH ×4 (02:07→20:57)
[2018-04-24] MEDS: D5 1/4 NS 1000 ML 1,000 ML IV SCH ×3 (06:08→18:54)
[2018-04-24 06:16] LABS: BASOPHILS # (AUTO) 0.1 X10^3/uL (0.0-0.1); BASOPHILS % (AUTO) 0.8 % (0.2-1.0); EOSINOPHILS # (AUTO) 0.5 x10^3/uL (0.0-0.2); EOSINOPHILS % (AUTO) 4.2 % (0.9-2.9); HEMATOCRIT 36.8 % (42.0-54.0); HEMOGLOBIN 12.3 g/dL (13.5-18.0); LYMPHOCYTES # (AUTO) 2.4 X10^3/uL (1.3-2.9); LYMPHOCYTES % (AUTO) 19.4 % (21.0-51.0); MEAN CORPUSCULAR HEMOGLOBIN 29.1 pg (27.0-34.0); MEAN CORPUSCULAR HGB CONC 33.3 g/dL (33.0-35.0); MEAN CORPUSCULAR VOLUME 87.3 fL (80.0-100.0); MEAN PLATELET VOLUME 9.5 fL (7.4-11.0); MONOCYTES # (AUTO) 1.1 x10^3/uL (0.3-0.8); MONOCYTES % (AUTO) 8.8 % (0.0-13.0); NEUTROPHILS # (AUTO) 8.1 x10^3/uL (2.2-4.8); NEUTROPHILS % (AUTO) 66.8 % (42.0-75.0); PLATELET COUNT 238 X10^3/uL (150.0-450.0); RED BLOOD COUNT 4.22 X10^6/uL (4.7-6.0); RED CELL DISTRIBUTION WIDTH 13.5 % (11.6-16.5); WHITE BLOOD COUNT 12.2 X10^3/uL (3.6-10.0)
[2018-04-24 06:38] LABS: ALANINE AMINOTRANSFERASE 22 Units/L (12-78); ALBUMIN 2.3 g/dL (3.4-5.0); ALKALINE PHOSPHATASE 54 Units/L (46-116); ASPARTATE AMINO TRANSFERASE 16 Units/L (15-37); BLOOD UREA NITROGEN 6 mg/dL (7-18); CALCIUM 9.2 mg/dL (8.5-10.1); CARBON DIOXIDE 30.9 mmol/L (21-32); CHLORIDE 100 mmol/L (98-107); COR CA(FOR HYPOALB) 10.6 mg/dL (8.5-10.1); COR NA(FOR HYPERGLY) 138 mmol/L (136-145); CREATININE 0.91 mg/dL (0.70-1.30); SODIUM 137 mmol/L (136-145); eGFR NON BLACK RACES > 60 (>60)
[2018-04-24] MEDS: PROTONIX INJ 40 MG VIAL IVP SCH (08:38)
[2018-04-24] MEDS: LOVENOX INJ 40 MG SYR SC SCH (08:38)
[2018-04-24] MEDS: TORADOL 30 MG VIAL IVP PRN (11:43)
--- NOTE | 2018-04-24 14:00 | DR.PROGNOT ---
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 large Lt diaphragmatic hernia.. s/p cholecystectomy , Lt colectomy , lysis of extensive adhesions ,drainage of. pelvic abscess. feeling better this am , less abdominal pain .no BM yet . afebrile and OOB. - Past Medical Family Social History Past Med/Fam/Surg Hx: No changes since H&P Allergies: Allergies kiwi Allergy (Verified 03/16/18 05:10) - Review Of Systems ROS: No change since H&P - Vital Signs Vital Signs: Temperature 99.3 F Pulse Rate [Left Brachial] 81 Pulse Rate 99 Respiratory Rate 20 Blood Pressure [Left Arm] 99/55 Blood Pressure [Right Arm] 132/73 Blood Pressure 116/69 O2 Sat by Pulse Oximetry 94 - Physical Exam Oriented: Normal Eyes: Normal Ear: Normal Nose: Normal Respiratory: Normal Cardiovascular: Normal : Normal GI:Auscultation: Decreased GI:Palpation: Normal GI: Tenderness: Diffuse Skin: Normal Speech Pattern: Clear, Appropriate - Laboratory and Diagnostics Result Diagrams: 04/24/18 05:20 04/24/18 05:20 Labs: 04/21/18 13:20 Abdomen Gram Stain - Final 04/21/18 13:20 Abdomen Wound Culture - Final Escherichia Coli Laboratory WBC 12.2 X10^3/uL (3.6-10.0) H 04/24/18 05:20 RBC 4.22 X10^6/uL (4.7-6.0) L 04/24/18 05:20 Hgb 12.3 g/dL (13.5-18.0) L 04/24/18 05:20 Hct 36.8 % (42.0-54.0) L 04/24/18 05:20 MCV 87.3 fL (80.0-100.0) 04/24/18 05:20 MCH 29.1 pg (27.0-34.0) 04/24/18 05:20 MCHC 33.3 g/dL (33.0-35.0) 04/24/18 05:20 RDW 13.5 % (11.6-16.5) 04/24/18 05:20 Plt Count 238 X10^3/uL (150.0-450.0) 04/24/18 05:20 MPV 9.5 fL (7.4-11.0) 04/24/18 05:20 Neut % (Auto) 66.8 % (42.0-75.0) 04/24/18 05:20 Lymph % (Auto) 19.4 % (21.0-51.0) L 04/24/18 05:20 [place] % (Auto) 8.8 % (0.0-13.0) 04/24/18 05:20 Eos % (Auto) 4.2 % (0.9-2.9) H 04/24/18 05:20 Baso % (Auto) 0.8 % (0.2-1.0) 04/24/18 05:20 Neut # (Auto) 8.1 x10^3/uL (2.2-4.8) H 04/24/18 05:20 Lymph # (Auto) 2.4 X10^3/uL (1.3-2.9) 04/24/18 05:20 [place] # (Auto) 1.1 x10^3/uL (0.3-0.8) H 04/24/18 05:20 Eos # (Auto) 0.5 x10^3/uL (0.0-0.2) H 04/24/18 05:20 Baso # (Auto) 0.1 X10^3/uL (0.0-0.1) 04/24/18 05:20 Absolute Nucleated RBC 0.0 /100WBC 04/24/18 05:20 Sodium 137 mmol/L (136-145) 04/24/18 05:20 Corrected Sodium 138 mmol/L (136-145) 04/24/18 05:20 Potassium 3.3 mmol/L (3.5-5.1) L 04/24/18 05:20 Chloride 100 mmol/L (98-107) 04/24/18 05:20 Carbon Dioxide 30.9 mmol/L (21-32) 04/24/18 05:20 BUN 6 mg/dL (7-18) L 04/24/18 05:20 Creatinine 0.91 mg/dL (0.70-1.30) 04/24/18 05:20 Est GFR (MDRD) Af Amer > 60 (>60) 04/24/18 05:20 Est GFR (MDRD) Non-Af > 60 (>60) 04/24/18 05:20 Glucose 131 mg/dL (65-99) H 04/24/18 05:20 Calcium 9.2 mg/dL (8.5-10.1) 04/24/18 05:20 Corrected Calcium 10.6 mg/dL (8.5-10.1) H 04/24/18 05:20 Total Bilirubin 0.40 mg/dL (0.2-1.0) 04/24/18 05:20 AST 16 Units/L (15-37) 04/24/18 05:20 ALT 22 Units/L (12-78) 04/24/18 05:20 Alkaline Phosphatase 54 Units/L (46-116) 04/24/18 05:20 Total Protein 6.0 g/dL (6.4-8.2) L 04/24/18 05:20 Albumin 2.3 g/dL (3.4-5.0) L 04/24/18 05:20 Globulin 3.7 g/dL (2.5-4.5) 04/24/18 05:20 Albumin/Globulin Ratio 0.6 Ratio (1.1-2.1) L 04/24/18 05:20 Tissue Pathology To follow 04/21/18 12:12 Blood Type O POSITIVE 04/21/18 10:03 Antibody Screen Negative 04/21/18 10:03 Crossmatch See Detail 04/21/18 10:03 - Assessment and Plan 1: day 3 Post op lap rica . laparotomt. lysis of extensive adhesions. Rt colectomy . drainage pelvic abscess. same PO care , DVT prophylaxis ,IV ATB, OOB with binder . started on liquid diet . possiblew d/c in am .
[2018-04-25] MEDS: DILAUDID INJ IVP PRN ×3 (00:06→12:17)
[2018-04-25] MEDS: D5 1/4 NS 1000 ML 1,000 ML IV SCH ×2 (03:01→05:58)
[2018-04-25] MEDS: FLAGYL IV PREMIX 500 MG BAG 500 MG/100 ML BAG IV SCH ×3 (03:09→15:06)
[2018-04-25 06:26] LABS: BASOPHILS # (AUTO) 0.1 X10^3/uL (0.0-0.1); BASOPHILS % (AUTO) 1.2 % (0.2-1.0); EOSINOPHILS # (AUTO) 0.6 x10^3/uL (0.0-0.2); EOSINOPHILS % (AUTO) 7.2 % (0.9-2.9); HEMATOCRIT 34.8 % (42.0-54.0); LYMPHOCYTES # (AUTO) 1.8 X10^3/uL (1.3-2.9); LYMPHOCYTES % (AUTO) 20.8 % (21.0-51.0); MEAN CORPUSCULAR HEMOGLOBIN 29.8 pg (27.0-34.0); MEAN CORPUSCULAR HGB CONC 34.5 g/dL (33.0-35.0); MEAN CORPUSCULAR VOLUME 86.4 fL (80.0-100.0); MEAN PLATELET VOLUME 10.6 fL (7.4-11.0); MONOCYTES # (AUTO) 0.8 x10^3/uL (0.3-0.8); MONOCYTES % (AUTO) 9.5 % (0.0-13.0); NEUTROPHILS # (AUTO) 5.3 x10^3/uL (2.2-4.8); NEUTROPHILS % (AUTO) 61.3 % (42.0-75.0); PLATELET COUNT 231 X10^3/uL (150.0-450.0); RED BLOOD COUNT 4.03 X10^6/uL (4.7-6.0); RED CELL DISTRIBUTION WIDTH 12.9 % (11.6-16.5); WHITE BLOOD COUNT 8.7 X10^3/uL (3.6-10.0)
[2018-04-25 06:42] LABS: ALANINE AMINOTRANSFERASE 21 Units/L (12-78); ALBUMIN 2.2 g/dL (3.4-5.0); ALKALINE PHOSPHATASE 53 Units/L (46-116); ASPARTATE AMINO TRANSFERASE 15 Units/L (15-37); BLOOD UREA NITROGEN 6 mg/dL (7-18); CALCIUM 8.7 mg/dL (8.5-10.1); CARBON DIOXIDE 29.1 mmol/L (21-32); CHLORIDE 103 mmol/L (98-107); COR CA(FOR HYPOALB) 10.1 mg/dL (8.5-10.1); COR NA(FOR HYPERGLY) 140 mmol/L (136-145); CREATININE 0.84 mg/dL (0.70-1.30); SODIUM 139 mmol/L (136-145); TOTAL PROTEIN 5.7 g/dL (6.4-8.2); eGFR NON BLACK RACES > 60 (>60)
[2018-04-25] MEDS ORDERED: K-RIDER 10 MEQ/NS 100 ML 10 MEQ/100 ML BAG IV PRN (06:56)
[2018-04-25] MEDS ORDERED: MAGNESIUM SULFATE 1 GRAM/100 mL PREMIX 1 GM/100 ML BAG IV PRN (06:56)
[2018-04-25] MEDS ORDERED: MICRO K EXTEN CAP 10 MEQ PO PRN (06:56)
[2018-04-25] MEDS ORDERED: POTASSIUM CHL 40 MEQ/NS 0.45% 500 ML IV PRN (06:56)
[2018-04-25] MEDS ORDERED: POTASSIUM CHLORIDE LIQ 20 MEQ UDC PO PRN (06:56)
[2018-04-25] MEDS ORDERED: K-DUR TAB 20 MEQ PO PRN (06:56)
[2018-04-25] MEDS ORDERED: KLOR-CON PO PRN (06:56)
[2018-04-25] MEDS ORDERED: POTASSIUM CHL 60 MEQ/NS 0.45% 500 ML IV PRN (06:56)
[2018-04-25] MEDS: TORADOL 30 MG VIAL IVP PRN (09:24)
[2018-04-25] MEDS: PROTONIX INJ 40 MG VIAL IVP SCH (09:25)
[2018-04-25] MEDS: LOVENOX INJ 40 MG SYR SC SCH (09:25)
[2018-04-25] MEDS ORDERED: MAG-OX TAB PO ONE (11:17)
[2018-04-25 16:45] VITALS: BP 154/94
== END 2018-04-25 15:50 | disposition home or self-care (01) | DRG 331 ==
LOC: OBS 08:59 → EDSTATUS 12:00 → ICU 14:43 → MED/SURG 04-23 11:06
PROVIDERS: ADMIT Surgery; ATTEND Surgery
DX: N99.4 Postprocedural pelvic peritoneal adhesions; K44.9 Diaphragmatic hernia without obstruction or gangrene; K80.80 Other cholelithiasis without obstruction; D3A.021 Benign carcinoid tumor of the cecum; B96.29 Other Escherichia coli [E. coli] as the cause of diseases classified elsewhere
CPT/HCPCS: 36415; 74000; 74018; 80053; 83735; 84132; 85014; 85018; 85025; 86850; 86900; 86901; 86922; 87070; 87077; 87186; 87205; A4216; A4222; C9113; J3490; S0030; J0330; J0690; J1170; J1650; J1885; J1956; J2250; J2405; J2704; J2710; J3010; J7120